=== PATIENT | male | born 1940 | race Caucasian/White ===

== ENCOUNTER 2020-08-21 08:53 | Day surgery (SDC) | payer OTHER ==
[2020-08-19 10:49] LABS: BASOPHILS % (AUTO) 0.7 % (0.0-2.0); EOSINOPHILS % (AUTO) 2.3 % (1.0-6.0); HEMATOCRIT 37.2 % (41-53); HEMOGLOBIN 12.8 g/dL (13.5-17.5); MEAN CORPUSCULAR HEMOGLOBIN 32.5 pg (26.0-34.0); MEAN CORPUSCULAR HGB CONC 34.3 G/dL (31.0-37.0); MEAN CORPUSCULAR VOLUME 95 fL (80-100); MONOCYTES # (AUTO) 0.7 K/uL (0.1-1.0); MONOCYTES % (AUTO) 9.4 % (2.0-9.0); NEUTROPHILS # (AUTO) 4.5 K/uL (1.8-7.7); NEUTROPHILS % (AUTO) 60.6 % (40.0-70.0); PLATELET COUNT (AUTO) 275 K/uL (150-450); RED BLOOD CELL COUNT(AUTO) 3.93 MIL/uL (4.50-5.90); RED CELL DISTRIBUTION WIDTH 13.5 % (11.5-14.5)
[2020-08-19 10:56] LABS: ANION GAP 8 mmol/L (8-16); CALCIUM, TOTAL 9.1 mg/dL (8.8-10.5); CARBON DIOXIDE 26 mmol/L (22-29); CHLORIDE 104 mmol/L (98-107); GLUCOSE,RANDOM 96 mg/dL (70-110); POTASSIUM 4.1 mmol/L (3.5-5.1); SODIUM SERUM 138 mmol/L (136-145); UREA NITROGEN, BLOOD 14 mg/dL (7-18)
[2020-08-19 10:57] LABS: GLOMERULAR FILTR. RATE CALC > 60 mL/min (>60)
[2020-08-19 10:59] LABS: COVID AG,FIA SOURCE NASOPHARYNGEAL
[~2020-08-21] VITALS: Ht 167.6 cm; Wt 73.6 kg
[~2020-08-21 08:53] MED LIST: CeFAZolin 2 GM/DEXTROSE 50 ML IV ONE
[2020-08-21] MEDS ORDERED: FentaNYL CITRATE-PF 100 MCG/2 ML VIAL IVP ONE (08:54)
[2020-08-21] MEDS ORDERED: LIDOCAINE/PF 2% 5 ML VIAL IM ONE (08:54)
[2020-08-21] MEDS ORDERED: 0.9% SODIUM CHLORIDE 10 ML VIAL IVP ONE (08:54)
[2020-08-21] MEDS ORDERED: ROCURONIUM BROMIDE 10 MG/ML 5 ML VIAL IVP ONE (08:54)
[2020-08-21] MEDS ORDERED: DEXAMETHASONE SOD PHOS 4 MG/ML VIAL IVP ONE (08:54)
[2020-08-21] MEDS ORDERED: PROPOFOL 1% 20 ML VIAL IVP ONE (08:54)
[2020-08-21] MEDS ORDERED: EPHEDrine SULFATE 50 MG/ML VIAL IM ONE (08:54)
[2020-08-21] MEDS ORDERED: SUCCINYLCHOLINE CHLORIDE 20 MG/ML 10 ML VIAL IVP ONE (08:54)
[2020-08-21] MEDS ORDERED: ONDANSETRON HCL 4 MG/2 ML VIAL IVP ONE (08:54)
[2020-08-21] MEDS ORDERED: RINGERS SOLUTION,LACTATED 1,000 ML IV ONE ×2 (08:55→09:30)
[2020-08-21] MEDS ORDERED: CeFAZolin 2 GM/DEXTROSE 50 ML IV ONE (08:55)
[2020-08-21] MEDS ORDERED: LIDOCAINE 2%/EPI 1:200,000/PF 20 ML VIAL ONE (10:56)
[2020-08-21] MEDS ORDERED: BUPIVACAINE HCL/PF 0.5% 30 ML VIAL ONE (10:56)
[2020-08-21] MEDS ORDERED: SUGAMMADEX SODIUM 200 MG/2 ML VIAL IVP ONE (12:21)
[2020-08-21] MEDS ORDERED: ACETAMINOPHEN 1000 MG/ISO-OSM 100 ML IV ONE (12:22)
[2020-08-21] MEDS ORDERED: IBUPROFEN 800 MG TABLET PO PRN (12:30)
[2020-08-21] MEDS ORDERED: ACETAMINOPHEN 500 MG TABLET PO PRN (12:30)
[2020-08-21] MEDS ORDERED: ACETAMINOPHEN 500 MG TABLET ONE (13:53)
== END 2020-08-21 14:30 | disposition home or self-care (01) ==
LOC: SURGERY 08:53
PROVIDERS: ATTEND Surgery
DX: K40.30 Unilateral inguinal hernia, with obstruction, without gangrene, not specified as recurrent (principal); F12.90 Cannabis use, unspecified, uncomplicated; G89.29 Other chronic pain; M54.9 Dorsalgia, unspecified; Z98.890 Other specified postprocedural states
CPT/HCPCS: 36415; 49650; 80048; 85025; 87426; 93005; C1781; C9803; J0131; J0330; J0690; J1100; J2405; J2704; J3010; J3490 ×4; J7120